=== PATIENT | female | born 1950 | race Caucasian/White ===

== ENCOUNTER → 2023-11-29 14:53 | Outpatient (REF) | payer MEDICARE, OTHER, SELFPAY | LOC: RCS 14:53 | PROVIDERS: ATTENDING PHYSICIAN Nurse Practitioner Primary Care; FAMILY PHYSICIAN Family Medicine | DX: I42.7 Cardiomyopathy due to drug and external agent (principal); C50.919 Malignant neoplasm of unspecified site of unspecified female breast; R11.2 Nausea with vomiting, unspecified; D70.9 Neutropenia, unspecified; K92.1 Melena; C50.812 Malignant neoplasm of overlapping sites of left female breast | CPT/HCPCS: 93306 ==

== ENCOUNTER → 2024-03-04 08:47 | Outpatient (REF) | payer MEDICARE, OTHER, SELFPAY | LOC: RCS 08:47 | PROVIDERS: ATTENDING PHYSICIAN Internal Medicine Hematology & Oncology; FAMILY PHYSICIAN Family Medicine | DX: I42.7 Cardiomyopathy due to drug and external agent (principal); C50.919 Malignant neoplasm of unspecified site of unspecified female breast; R11.2 Nausea with vomiting, unspecified; D70.9 Neutropenia, unspecified; C50.812 Malignant neoplasm of overlapping sites of left female breast | CPT/HCPCS: 93306 ==

== ENCOUNTER → 2024-07-21 13:39 | Outpatient (REF) | payer MEDICARE, OTHER, SELFPAY | LOC: RCS 13:39 | PROVIDERS: ATTENDING PHYSICIAN Internal Medicine Hematology & Oncology; FAMILY PHYSICIAN Family Medicine | DX: I42.7 Cardiomyopathy due to drug and external agent (principal) | CPT/HCPCS: 93306; 93356 ==

== ENCOUNTER → 2024-11-09 14:35 | Outpatient (REF) | payer MEDICARE, OTHER, SELFPAY | LOC: RCS 14:35 | PROVIDERS: ATTENDING PHYSICIAN Internal Medicine Hematology & Oncology; FAMILY PHYSICIAN Family Medicine | DX: I42.7 Cardiomyopathy due to drug and external agent (principal); C50.919 Malignant neoplasm of unspecified site of unspecified female breast; R11.2 Nausea with vomiting, unspecified; D70.9 Neutropenia, unspecified; K92.1 Melena; C50.812 Malignant neoplasm of overlapping sites of left female breast | CPT/HCPCS: 93306; 93356 ==

== ENCOUNTER → 2025-02-07 14:39 | Outpatient (REF) | payer MEDICARE, OTHER, SELFPAY | LOC: RCS 14:39 | PROVIDERS: ATTENDING PHYSICIAN Internal Medicine Hematology & Oncology; FAMILY PHYSICIAN Family Medicine | DX: I42.7 Cardiomyopathy due to drug and external agent (principal) | CPT/HCPCS: 93306 ==

== ENCOUNTER → 2025-03-29 07:54 | Outpatient (REF) | payer MEDICARE, OTHER, SELFPAY ==
[2025-03-29 07:38] LABS: Glucose 105 mg/dl (70-99)
== END ==
LOC: PET 07:54
PROVIDERS: ATTENDING PHYSICIAN Internal Medicine Hematology & Oncology
DX: C50.812 Malignant neoplasm of overlapping sites of left female breast (principal); R11.2 Nausea with vomiting, unspecified; D70.9 Neutropenia, unspecified; K92.1 Melena; I42.7 Cardiomyopathy due to drug and external agent
CPT/HCPCS: 36415; 82947

== ENCOUNTER → 2025-04-28 10:02 | Outpatient (REF) | payer MEDICARE, OTHER, SELFPAY | LOC: RCS 10:02 | PROVIDERS: ATTENDING PHYSICIAN Internal Medicine Hematology & Oncology; FAMILY PHYSICIAN Family Medicine | DX: I42.7 Cardiomyopathy due to drug and external agent (principal); C50.919 Malignant neoplasm of unspecified site of unspecified female breast; R11.2 Nausea with vomiting, unspecified; D70.9 Neutropenia, unspecified; K92.1 Melena; C50.812 Malignant neoplasm of overlapping sites of left female breast | CPT/HCPCS: 93306 ==